=== PATIENT | female | born 1940 | race Caucasian/White ===

== ENCOUNTER → 2016-03-23 | Outpatient (CLI) | payer MEDICARE, BC ==
[~2016-03-23] MED LIST: ALPR1TAB3 PO; BUPR1TAB29 PO; CELE1CAP11 PO; CELE200 PO; CHOL1CAP14 PO; COMPTAB PO; DIGO0.25 PO; ESTE500T PO; FURO1TAB93 PO; FURO40TA PO; HYDR-3133 PO; HYDR-3533 PO; LEVO100T5 PO; LEVO100T60 PO; MACR100C2 PO; MULTTAB67 PO; PRIM50TA5 PO; PROP20TA3 PO; SPIR25 PO; SPIR25TA PO; VITA200017 PO; WARF-18 PO; WARF2.5T40 PO; XANA1TAB6 PO
[2016-03-23 13:48] LABS: INTERNATIONAL NORMALIZED RATIO 1.6 RATIO; PROTHROMBIN TIME - PATIENT 18.1 SEC (9.8-11.6)
== END ==
LOC: CLAB 12:55
DX: I48.91 Unspecified atrial fibrillation (principal)
CPT/HCPCS: 36415; 85610

== ENCOUNTER → 2016-03-30 | Outpatient (CLI) | payer MEDICARE, BC ==
[2016-03-30 11:52] LABS: INTERNATIONAL NORMALIZED RATIO 4.7 RATIO; PROTHROMBIN TIME - PATIENT 55.5 SEC (9.8-11.6)
== END ==
LOC: CLAB 11:18
DX: I48.91 Unspecified atrial fibrillation (principal)
CPT/HCPCS: 36415; 85610

== ENCOUNTER 2016-04-05 19:44 | Emergency (ER) | payer MEDICARE, BC ==
[~2016-04-05] VITALS: Ht 167.6 cm; Wt 70.0 kg
[~2016-04-05 19:44] MED LIST changes: -ALPR1TAB3 PO; -BUPR1TAB29 PO; -CELE1CAP11 PO; -CHOL1CAP14 PO; -FURO40TA PO; -HYDR-3133 PO; -HYDR-3533 PO; -LEVO100T5 PO; -MACR100C2 PO; -MULTTAB67 PO; -PROP20TA3 PO; -SPIR25TA PO; -WARF-18 PO
[2016-04-05 19:47] VITALS: BP 181/72; PULSE 83; RESP 16; TEMP 97.2; O2SAT 95
[2016-04-05 20:53] VITALS: BP 191/74; PULSE 77; RESP 20; TEMP 97.3; O2SAT 98
[2016-04-05] MEDS ORDERED: ONDANSETRON HCL 4 MG/2 ML VIAL IV ONE (21:00)
[2016-04-05] MEDS ORDERED: MORPHINE SULFATE 4 MG/ML INJ IV PUSH ONE (21:00)
[2016-04-05] MEDS ORDERED: SODIUM CHLOR 0.9% 1000 ML INJ 1,000 ML IV SCH (21:00)
[2016-04-05] MEDS ORDERED: LEVO100T5 PO (21:20)
[2016-04-05] MEDS ORDERED: HYDR-3133 PO (21:20)
[2016-04-05] MEDS ORDERED: ALPR1TAB3 PO (21:20)
[2016-04-05] MEDS ORDERED: WARF-18 PO (21:20)
[2016-04-05] MEDS ORDERED: FURO40TA PO (21:20)
[2016-04-05] MEDS ORDERED: MULTTAB67 PO (21:20)
[2016-04-05] MEDS ORDERED: CHOL1CAP14 PO (21:20)
[2016-04-05] MEDS ORDERED: PROP20TA3 PO (21:20)
[2016-04-05] MEDS ORDERED: BUPR1TAB29 PO (21:20)
[2016-04-05] MEDS ORDERED: CELE1CAP11 PO (21:20)
[2016-04-05] MEDS ORDERED: SPIR25TA PO (21:20)
[2016-04-05] MEDS ORDERED: DIGO0.25 PO (21:20)
[2016-04-05 21:39] LABS: BACTERIA, URINE RARE /hpf; BLOOD, URINE NEG (NEG); COMMENT (UR) CULTURE INDICATED; CULTURE IF INDICATED CULTURE INDICATED; GLUCOSE,URINE NEG (NEG); HYALINE CAST, URINE 15 /lpf (RARE); KETONE, URINE NEG (NEG); MUCUS URINE FEW /lpf (OCC); NITRITE,URINE NEG (NEG); PH, URINE 5.5 (5.0-8.5); SQUAMOUS EPITHELIAL CELL URINE 1 /hpf (0-5); URINE COLOR YELLOW (YELLW/STRAW)
[2016-04-05 21:45] LABS: APTT (PATIENT) 50.2 SEC (24.3-30.1); AUTOMATED NEUTROPHIL # 4.9 TH/MM3 (1.8-7.7); BASOPHIL % 0.5 % (0.0-2.0); EOSINOPHIL # 0.1 TH/MM3 (0-0.4); EOSINOPHIL % 1.4 % (0.0-4.0); HEMATOCRIT 38.8 % (35.0-46.0); HEMO FLAGS DIFF FINAL; INTERNATIONAL NORMALIZED RATIO 3.3 RATIO; LYMPH % 16.8 % (9.0-44.0); LYMPHOCYTE # 1.2 TH/MM3 (1.0-4.8); MEAN CELL VOLUME 92.4 FL (80.0-100.0); MEAN CORPUSCULAR HEMOGLOBIN 30.9 PG (27.0-34.0); MEAN CORPUSCULAR HGB CONC 33.4 % (32.0-36.0); MONO % 10.4 % (0.0-8.0); NEUT % 70.9 % (16.0-70.0); PLATELET COUNT 225 TH/MM3 (150-450); PROTHROMBIN TIME - PATIENT 38.6 SEC (9.8-11.6); RED CELL DISTRIBUTION WIDTH 12.8 % (11.6-17.2); WHITE BLOOD COUNT 6.9 TH/MM3 (4.0-11.0)
--- NOTE | 2016-04-05 21:55 | PD ---
HPI Chief Complaint: Back/ Neck Pain or Injury Time Seen by Provider: 20:31 Travel History International Travel<30 days: No Contact w/Intl Traveler<30days: No Traveled to known affect area: No History of Present Illness HPI The patient is a 75 year old female who presents to the [facility] emergency department with a history of back pain on the right side that radiates around to the right upper quadrant of the abdomen that first began in December 2015. She reports that it had been coming and going. She reports that the pain has become more severe and more persistent recently. She reports that she saw her primary care physician, Dr. Reyes regarding this on 2 occasions. The first time at chest x-ray was done which was unremarkable. The second time a CT scan of the chest was done which was reportedly unremarkable. She does report having a chronic cough related to postnasal drip that is been no worse than usual and no more productive. The patient reports that the pain is sharp in character. She reports that it is worse when she takes a deep breath or moves. She reports that it is also worse with coughing. She reports that she recently did have a diminished appetite and some nausea with eating, however this was attributed to a change in medication. She reports that this has improved recently again.. The patient denies having any recent fevers, cough, neck pain, chest pain, shortness of breath, abdominal pain, diarrhea, urinary symptoms, or neurologic symptoms. PFSH Past Medical History Narrative Medical The patient's past medical history is significant for chronic atrial fibrillation, history of mitral valve replacement with an artificial valve in 1995, hypertension, essential tremor, vertigo, anxiety disorder, depression, hypothyroid disorder. Hx Anticoagulant Therapy: Yes Arthritis: Yes Asthma: No Autoimmune Disease: No Blood Disorders: No Anxiety: Yes Depression: Yes Heart Rhythm Problems: Yes (AFIB) Cancer: No Cardiac Catheterization: Yes (MECHANICAL HEART VALVE IN 1995) Cardiovascular Problems: Yes High Cholesterol: No Chest Pain: No Congestive Heart Failure: No COPD: No Cerebrovascular Accident: No Diabetes: No Diminished Hearing: No Gastrointestinal Disorders: No GERD: No Genitourinary: No Hiatal Hernia: No Hypertension: Yes Immune Disorder: No Implanted Vascular Access Dvce: Yes Kidney Stones: No Musculoskeletal: Yes Neurologic: No Psychiatric: Yes Reproductive: No Respiratory: No Immunizations Current: Yes Renal Failure: No Sickle Cell Disease: No Sleep Apnea: No Thyroid Disease: Yes (HYPOTHYROID) Ulcer: No Tetanus Vaccination: > 5 Years Influenza Vaccination: Yes (2016) Menopausal: Yes Past Surgical History Narrative Surgical The patient's past surgical history is significant for mitral valve replacement , left knee surgery to remove some cartilage. Abdominal Surgery: No AICD: No Arteriovenous Shunt: No Body Medical Devices: AORTIC VALVE REPLACEMENT Cardiac Surgery: Yes (AORTIC VALVE REPLACEMENT 1995) Ear Surgery: No Endocrine Surgery: No Eye Surgery: No Genitourinary Surgery: No Gynecologic Surgery: No Insulin Pump: No Joint Replacement: No Neurologic Surgery: No Oral Surgery: No Pacemaker: No Thoracic Surgery: No Other Surgery: Yes Social History Alcohol Use: Yes (3 times a year) Tobacco Use: No Substance Use: No Allergies-Medications (Allergen,Severity, Reaction): Coded Allergies: Adhesives (Unverified Allergy, Severe, 04/05/16) SKIN IRRITATION Latex (Unverified Allergy, Severe, 04/05/16) SKIN IRRITATION Reported Meds & Prescriptions Reported Meds & Active Scripts Active Macrobid (Nitrofurantoin Monoh/Nitrofur Macro) 100 Mg Cap 100 Mg PO BID 10 Days Lortab (Hydrocodone-Acetaminophen) 5-325 Mg Tab 1 Tab PO Q6H PRN Reported Propranolol (Propranolol HCl) 20 Mg Tab 20 Mg PO Q12HR Hydroxyzine HCl 25 Mg Tab 25 Mg PO TID PRN Levothyroxine (Levothyroxine Sodium) 100 Mcg Tab 100 Mcg PO DAILY D3 Maximum Strength (Cholecalciferol) 5,000 Unit Cap 2,000 Units PO DAILY Multiple Vitamin 1 Tab 1 Tab PO DAILY Furosemide 40 Mg Tab 40 Mg PO DAILY Digoxin 0.25 Mg Tab 0.25 Mg PO DAILY Spironolactone 25 Mg Tab 25 Mg PO DAILY Warfarin 2.5 Mg Tab 2.5 Mg PO DIRECTED Alprazolam 1 Mg Tab 1 Mg PO DIRECTED PRN Celecoxib 50 Mg Cap 50 Mg PO DAILY Bupropion HCl ER 12 HR (Bupropion HCl) 150 Mg Tab 150 Mg PO DAILY Review of Systems Except as stated in HPI: all other systems reviewed are Neg General / Constitutional: No: Fever Eyes: No: Visual changes HENT: No: Headaches Cardiovascular: No: Chest Pain or Discomfort Respiratory: Positive: Cough (chronic in nature), No: Shortness of Breath Gastrointestinal: No: Abdominal Pain Genitourinary: No: Dysuria Musculoskeletal: Positive: Myalgias, Arthralgias, Pain Skin: No Rash Neurologic: No: Weakness, Focal Abnormalities, Change in Mentation, Sensory Disturbance Psychiatric: No: Depression Endocrine: No: Polydipsia Hematologic/Lymphatic: No: Easy Bruising Physical Exam Narrative General: The patient is a well-developed well-nourished female in no acute distress. Head and Neck exam: Head is normocephalic atraumatic. Eyes: Pupils are equal round and reactive to light. Nose: Midline septum with pink mucous membranes Mouth: Dentition unremarkable. Moist mucus membranes. Posterior oropharynx is not erythematous. No tonsillar hypertrophy. Uvula midline. Airway patent. Neck: No palpable lymphadenopathy. No nuchal rigidity. No thyromegaly. Cardiovascular: Regular rate and rhythm without murmurs, gallops, or rubs. Lungs: Clear to auscultation bilaterally. No wheezes, rhonchi, or rales. Abdomen: Soft, with reported tenderness on palpation in the midepigastric and right upper quadrant of the abdomen on deep palpation. No other tenderness in the other quadrants of the abdomen. No guarding, rebound, or rigidity. Negative Roark sign. Extremities: No clubbing, cyanosis, or edema. 2+ pulses in all 4 extremities. Back: No spinous process tenderness to palpation. The patient reports having discomfort on palpation of the right side of the thorax medial to her scapula all along her right side of her back. There is no crepitus or step-off. No rash. No erythema or ecchymosis. No flail segment. No costovertebral angle tenderness to palpation. Neurologic Exam: Cranial nerves 2-12 were intact on exam. Strength is 5/5 in all 4 extremities. No sensory deficits noted. Skin Exam: No rash noted. Intact skin that is warm and dry. Data Data Last Documented VS Vital Signs Date Time Temp Pulse Resp B/P Pulse Ox O2 Delivery O2 Flow Rate FiO2 04/05/16 20:53 97.3 77 20 191/74 98 Orders Complete Blood Count With Diff (04/05/16 20:49) Comprehensive Metabolic Panel (04/05/16 20:49) Prothrombin Time / Inr (Pt) (04/05/16 20:49) Act Partial Throm Time (Ptt) (04/05/16 20:49) Lipase (04/05/16 20:49) Urinalysis - C+S If Indicated (04/05/16 20:49) Us Abdomen Gallbladder (04/05/16 20:49) Iv Access Insert/Monitor (04/05/16 20:49) Ecg Monitoring (04/05/16 20:49) Oximetry (04/05/16 20:49) Ct Thor Spine W/O Contrast (04/05/16 20:49) Ondansetron Inj (Zofran Inj) (04/05/16 21:00) Morphine Inj (Morphine Inj) (04/05/16 21:00) Sodium Chlor 0.9% 1000 Ml Inj (Ns 1000 M (04/05/16 21:00) Urine Culture (04/05/16 21:10) Ceftriaxone Inj (Rocephin Inj) (04/05/16 22:00) Acetamin-Hydrocod 325-5 Mg ([place] 5-325 (04/05/16 23:30) Labs Laboratory Tests Test 04/05/16 21:10 White Blood Count 6.9 TH/MM3 Red Blood Count 4.20 MIL/MM3 Hemoglobin 13.0 GM/DL Hematocrit 38.8 % Mean Corpuscular Volume 92.4 FL Mean Corpuscular Hemoglobin 30.9 PG Mean Corpuscular Hemoglobin 33.4 % Concent Red Cell Distribution Width 12.8 % Platelet Count 225 TH/MM3 Mean Platelet Volume 8.8 FL Neutrophils (%) (Auto) 70.9 % Lymphocytes (%) (Auto) 16.8 % Monocytes (%) (Auto) 10.4 % Eosinophils (%) (Auto) 1.4 % Basophils (%) (Auto) 0.5 % Neutrophils # (Auto) 4.9 TH/MM3 Lymphocytes # (Auto) 1.2 TH/MM3 Monocytes # (Auto) 0.7 TH/MM3 Eosinophils # (Auto) 0.1 TH/MM3 Basophils # (Auto) 0.0 TH/MM3 CBC Comment DIFF FINAL Differential Comment Prothrombin Time 38.6 SEC Prothromb Time International 3.3 RATIO Ratio Activated Partial 50.2 SEC Thromboplast Time Urine Color YELLOW Urine Turbidity CLEAR Urine pH 5.5 Urine Specific [place] 1.031 Urine Protein TRACE mg/dL Urine Glucose (UA) NEG mg/dL Urine Ketones NEG mg/dL Urine Occult Blood NEG Urine Nitrite NEG Urine Bilirubin NEG Urine Urobilinogen LESS THAN 2.0 MG/DL Urine Leukocyte Esterase MOD Urine RBC 3 /hpf Urine WBC 29 /hpf Urine Squamous Epithelial 1 /hpf Cells Urine Bacteria RARE /hpf Urine Hyaline Casts 15 /lpf Urine Mucus FEW /lpf Microscopic Urinalysis Comment CULTURE INDICATED Sodium Level 139 MEQ/L Potassium Level 3.5 MEQ/L Chloride Level 97 MEQ/L Carbon Dioxide Level 34.7 MEQ/L Anion Gap 7 MEQ/L Blood Urea Nitrogen 20 MG/DL Creatinine 1.07 MG/DL Estimat Glomerular Filtration 50 ML/MIN Rate Random Glucose 86 MG/DL Calcium Level 9.4 MG/DL Total Bilirubin 0.3 MG/DL Aspartate Amino Transf 18 U/L (AST/SGOT) Alanine Aminotransferase 14 U/L (ALT/SGPT) Alkaline Phosphatase 96 U/L Total Protein 8.1 GM/DL Albumin 4.0 GM/DL Lipase 215 U/L [facility] Medical Decision Making Medical Screen Exam Complete: Yes Emergency Medical Condition: Yes Medical Record Reviewed: Yes Interpretation(s) Last Impressions Thoracic Spine CT 04/05/162048 Signed Impressions: Service Date/Time: Tuesday, April 05, 2016 21:36 - CONCLUSION: There are numerous thoracic spine compression fractures as above, none convincingly acute. No fracture-associated thoracic spine foraminal or spinal stenosis Tano Campbell MD Gall Bladder Ultrasound 04/05/162048 Signed Impressions: Service Date/Time: Tuesday, April 05, 2016 21:48 - CONCLUSION: 1. Mild enlargement and probably mild fatty infiltrated liver. 2. Ultrasound appearance of the gallbladder within normal limits. 3. Benign-appearing right renal cyst. Tano Campbell MD Differential Diagnosis Kidney stone, versus pyelonephritis, versus acute cholecystitis, versus compression fracture, versus biliary colic Narrative Course During the course of the patients emergency department visit, the patients history, examination, and differential diagnosis were reviewed with the patient. The patient had IV access obtained and blood work sent for analysis. The patient was provided the patient was given morphine for pain, Zofran for nausea. The patient after pyuria was noted and there was a suspicion of urinary tract infection the patient was given Rocephin 1 g IV. The patient was continued on maintenance IV fluids. The patients laboratory studies were reviewed and remarkable for a white count of 6.9, hemoglobin 13, platelets 225 with 70.9 neutrophils, monocytes 10.4, CMP was remarkable for a chloride of 97, CO2 34.7, BUN 20, creatinine 1.07, lipase 215, INR 3.3, urinalysis shows moderate leukocyte esterase 3 RBCs WBCs 29, rare bacteria, culture indicated. Radiology studies were reviewed and remarkable for mild enlargement probably mild fatty liver, ultrasound appearance of the gallbladder is within normal limits, benign-appearing right renal cyst. CT scan of the thoracic spine reveals numerous thoracic spine compression fractures, none convincingly acute. No fracture associated thoracic spine foraminal or spinal stenosis. The patient's results were discussed with the patient's primary care physician, Dr. Reyes. He felt that the patient could be managed as an outpatient. The patient reports that she has an appointment with an orthopedic physician as scheduled for . The patient was instructed regarding the importance of following up. The patient will be given a prescription for Macrobid, and Lortab. The patient is resting comfortably and feels better, is alert and in no distress. The patients results and examination findings were discussed with the patient. The repeat examination is unremarkable and benign. The history, exam, diagnostic testing, and current condition do not suggest any significant pathology to warrant further testing, continued ED treatment, admission, or surgical evaluation at this point. The vital signs have been stable. The patient does not have uncontrollable pain, intractable vomiting, or other significant symptoms. The patient's condition is stable and appropriate for discharge. The patient will pursue further outpatient evaluation with a primary care physician or other designated or consulting physician as indicated in the discharge instructions. The patient expressed understanding and was agreeable with this plan. Physician Communication Physician Communication I spoke to Dr. Reyes at approximately 10:45 PM regarding this patient's case. I discussed the patient's CT of the thoracic spine findings, laboratory results, urinalysis results and ultrasound of the gallbladder. He reports that she does have a history of compression fractures of her thoracic spine. He was agreeable with the plan for the patient to be discharged home and follow-up with orthopedic physician as previously scheduled for this . The patient will be discharged home with Macrobid and Lortab. Diagnosis Primary Impression: Back pain Qualified Code: M54.6 - Chronic right-sided thoracic back pain Additional Impressions: Compression fracture of body of thoracic vertebra Urinary tract infection Referrals: Marixa Reyes MD 2 days Orthopedist 2 days Patient Instructions: Back Pain (ED), General Instructions, Vertebral Compression Fracture (ED) Med/Other Pt SpecificInfo: Prescription(s) given Scripts Nitrofurantoin Monohydrate Macrocrystals (Macrobid)100 Mg [id number] Mg PO BID 10 Days Ref 0 Prov:Devika Arauz MD 04/05/16 Hydrocodone-Acetaminophen (Lortab)5-325 Mg Tab1 Tab PO Q6H PRN (PAIN) #12 TAB Ref 0 Prov:Devika Arauz MD 04/05/16 Disposition: 01 DISCHARGE HOME Condition: Stable Devika Arauz MD Apr 05, 2016 21:55
[2016-04-05 22:00] LABS: ANION GAP 7 MEQ/L (5-15); AST (GOT) 18 U/L (15-37); BICARBONATE 34.7 MEQ/L (21.0-32.0); BLOOD UREA NITROGEN 20 MG/DL (7-18); CHLORIDE 97 MEQ/L (98-107); GLOMERULAR FILTRATION RATE 50 ML/MIN (>89); POTASSIUM 3.5 MEQ/L (3.5-5.1); SODIUM (NA) 139 MEQ/L (136-145)
[2016-04-05] MEDS ORDERED: cefTRIAXone INJ 1,000 MG in SODIUM CHLORIDE 0.9% INJ 100 ML IV ONE (22:00)
[2016-04-05 22:03] LABS: ALKALINE PHOSPHATASE 96 U/L (45-117); ALT (GPT) 14 U/L (10-53); TOTAL BILIRUBIN ADULT 0.3 MG/DL (0.2-1.0)
--- NOTE | 2016-04-05 22:05 | RADRPT ---
EXAM DATE/TIME: 04/05/2016 21:36 [facility] COMPARISON: No previous studies available for comparison. INDICATIONS : Right-sided back pain. No trauma. RADIATION DOSE: 35.86 CTDIvol (mGy) MEDICAL HISTORY : Cardiovascular disease. SURGICAL HISTORY : None. ENCOUNTER: Initial ACUITY: 1 day PAIN SCALE: 6/10 LOCATION: Right Paraspinal TECHNIQUE: Volumetric scanning of the thoracic spine was performed. Multiplanar reconstructions in the sagittal , coronal and oblique axial planes were performed. Using automated exposure control and adjustment o f the mA and/or kV according to patient size, radiation dose was kept as low as reasonably achievable to obtain optimal diagnostic quality images. FINDINGS: I don't have any pertinent priors. Multiple compression fractures are demonstrated, mild of T2 and T3 , moderate of T5, [id number] at T6, moderate of T9 and T10, mild of T11 and moderate to severe at L1. These all generally appear subacute or older in age. I don't see an acute cortical break or tr abecular disruption. Posterior elements are intact. Slight retropulsion seen of L1 but no retropulsio n seen of the thoracic vertebral bodies. There is no fracture-associated foraminal or spinal stenosis of the thoracic spine. No epidural hematoma. No perceptible paraspinous hematoma CONCLUSION: There are numerous thoracic spine compression fractures as above, none convincingly acute. No fractur e-associated thoracic spine foraminal or spinal stenosis Tano Campbell MD on April 05, 2016 at 21:58 Board Certified Radiologist. This report was verified electronically.
--- NOTE | 2016-04-05 22:21 | RADRPT ---
EXAM DATE/TIME: 04/05/2016 21:48 [facility] COMPARISON: No previous studies available for comparison. INDICATIONS : Right upper quadrant pain. MEDICAL HISTORY : Hypothyroidism. Hypertension. Arthritis. Afib. Anticoagulant therapy. Depression. Anxiety. SURGICAL HISTORY : Aortic valve replacement. Cardiac cath. Left knee cartilage repair. ENCOUNTER: Initial ACUITY: 1 day PAIN SCORE: 10/10 LOCATION: Right upper quadrant MEASUREMENTS: LIVER: 18.6 cm length COMMON DUCT: 2 mm RIGHT KIDNEY: 9.6 x 3.9 x 4.3 cm FINDINGS: LIVER: Normal echotexture without focal lesion or ductal dilatation. COMMON DUCT: No intraluminal mass or stone visualized. GALLBLADDER: Contains no stones, demonstrates no wall thickening or pericholecystic fluid. PANCREAS: The visualized portions are within normal limits. RIGHT KIDNEY: 4.6 cm cyst upper pole. CONCLUSION: 1. Mild enlargement and probably mild fatty infiltrated liver. 2. Ultrasound appearance of the gallbladder within normal limits. 3. Benign-appearing right renal cyst. Tano Campbell MD on April 05, 2016 at 22:18 Board Certified Radiologist. This report was verified electronically.
[2016-04-05] MEDS ORDERED: MACR100C2 PO (22:53)
[2016-04-05] MEDS ORDERED: HYDR-3533 PO (22:53)
[2016-04-05] MEDS ORDERED: ACETAMINOPHEN/HYDROcodone 325 MG/5 MG TAB PO ONE (23:30)
== END 2016-04-05 23:40 | disposition home or self-care (01) ==
LOC: NEPC 19:44
DX: M48.54XA Collapsed vertebra, not elsewhere classified, thoracic region, initial encounter for fracture (principal); N39.0 Urinary tract infection, site not specified; R10.11 Right upper quadrant pain; E03.9 Hypothyroidism, unspecified; I10 Essential (primary) hypertension; Z95.2 Presence of prosthetic heart valve; I48.91 Unspecified atrial fibrillation; Z79.01 Long term (current) use of anticoagulants
CPT/HCPCS: 72128; 76705; 80053; 81001; 83690; 85025; 85610; 85730; 87086; 96361; 96365; 96375; 99284; J0696; J2270; J2405; J7030

== ENCOUNTER → 2016-04-12 | Outpatient (CLI) | payer MEDICARE, BC ==
[~2016-04-12] MED LIST changes: +ALPR1TAB3 PO; +BUPR1TAB29 PO; +CELE1CAP11 PO; -CELE200 PO; +CHOL1CAP14 PO; -COMPTAB PO; -ESTE500T PO; -FURO1TAB93 PO; +FURO40TA PO; +HYDR-3133 PO; +HYDR-3533 PO; +LEVO100T5 PO; -LEVO100T60 PO; +MACR100C2 PO; +MULTTAB67 PO; -PRIM50TA5 PO; +PROP20TA3 PO; -SPIR25 PO; +SPIR25TA PO; -VITA200017 PO; +WARF-18 PO; -WARF2.5T40 PO; -XANA1TAB6 PO
[2016-04-12 15:21] LABS: INTERNATIONAL NORMALIZED RATIO 4.3 RATIO; PROTHROMBIN TIME - PATIENT 51.2 SEC (9.8-11.6)
== END ==
LOC: CLAB 14:45
DX: I48.91 Unspecified atrial fibrillation (principal)
CPT/HCPCS: 36415; 85610

== ENCOUNTER → 2016-04-22 | Outpatient (CLI) | payer MEDICARE, BC ==
[2016-04-22 11:46] LABS: INTERNATIONAL NORMALIZED RATIO 1.9 RATIO; PROTHROMBIN TIME - PATIENT 22.1 SEC (9.8-11.6)
== END ==
LOC: CLAB 11:16
DX: I48.91 Unspecified atrial fibrillation (principal)
CPT/HCPCS: 36415; 85610

== ENCOUNTER → 2016-05-05 | Outpatient (CLI) | payer MEDICARE, BC ==
[2016-05-05 14:57] LABS: INTERNATIONAL NORMALIZED RATIO 2.2 RATIO; PROTHROMBIN TIME - PATIENT 25.2 SEC (9.8-11.6)
== END ==
LOC: CLAB 14:27
DX: I48.91 Unspecified atrial fibrillation (principal)
CPT/HCPCS: 36415; 85610

== ENCOUNTER → 2016-05-13 | Outpatient (CLI) | payer MEDICARE, BC ==
[2016-05-13 14:31] LABS: INTERNATIONAL NORMALIZED RATIO 3.2 RATIO; PROTHROMBIN TIME - PATIENT 36.8 SEC (9.8-11.6)
== END ==
LOC: CLAB 14:03
DX: I48.91 Unspecified atrial fibrillation (principal)
CPT/HCPCS: 36415; 85610

== ENCOUNTER → 2016-05-28 | Outpatient (CLI) | payer MEDICARE, BC ==
[2016-05-28 15:16] LABS: INTERNATIONAL NORMALIZED RATIO 2.5 RATIO
== END ==
LOC: CLAB 14:43
DX: I48.91 Unspecified atrial fibrillation (principal)
CPT/HCPCS: 36415; 85610

== ENCOUNTER → 2016-06-17 | Outpatient (CLI) | payer MEDICARE, BC ==
[2016-06-17 15:11] LABS: INTERNATIONAL NORMALIZED RATIO 1.6 RATIO; PROTHROMBIN TIME - PATIENT 18.1 SEC (9.8-11.6)
== END ==
LOC: CLAB 14:29
DX: I48.91 Unspecified atrial fibrillation (principal)
CPT/HCPCS: 36415; 85610

== ENCOUNTER → 2016-06-24 | Outpatient (CLI) | payer MEDICARE, BC ==
[2016-06-24 15:58] LABS: INTERNATIONAL NORMALIZED RATIO 2.2 RATIO; PROTHROMBIN TIME - PATIENT 25.4 SEC (9.8-11.6)
== END ==
LOC: CLAB 15:19
DX: I48.91 Unspecified atrial fibrillation (principal)
CPT/HCPCS: 36415; 85610

== ENCOUNTER → 2016-07-09 | Outpatient (CLI) | payer MEDICARE, BC ==
[2016-07-09 14:49] LABS: INTERNATIONAL NORMALIZED RATIO 2.6 RATIO; PROTHROMBIN TIME - PATIENT 29.5 SEC (9.8-11.6)
== END ==
LOC: CLAB 14:16
DX: I48.91 Unspecified atrial fibrillation (principal)
CPT/HCPCS: 36415; 85610

== ENCOUNTER → 2016-08-05 | Outpatient (CLI) | payer MEDICARE, BC ==
[2016-08-05 12:05] LABS: INTERNATIONAL NORMALIZED RATIO 2.1 RATIO; PROTHROMBIN TIME - PATIENT 23.6 SEC (9.8-11.6)
== END ==
LOC: CLAB 11:19
DX: I48.91 Unspecified atrial fibrillation (principal)
CPT/HCPCS: 36415; 85610

== ENCOUNTER → 2016-09-01 | Outpatient (CLI) | payer MEDICARE, BC ==
[2016-09-01 14:45] LABS: INTERNATIONAL NORMALIZED RATIO 2.4 RATIO; PROTHROMBIN TIME - PATIENT 27.5 SEC (9.8-11.6)
== END ==
LOC: CLAB 13:49
DX: I48.91 Unspecified atrial fibrillation (principal)
CPT/HCPCS: 36415; 85610

== ENCOUNTER → 2016-09-29 | Outpatient (CLI) | payer MEDICARE, BC ==
[2016-09-29 12:38] LABS: INTERNATIONAL NORMALIZED RATIO 1.3 RATIO; PROTHROMBIN TIME - PATIENT 14.8 SEC (9.8-11.6)
== END ==
LOC: CLAB 11:38
DX: I48.91 Unspecified atrial fibrillation (principal)
CPT/HCPCS: 36415; 85610

== ENCOUNTER → 2016-10-06 | Outpatient (CLI) | payer MEDICARE, BC ==
[2016-10-06 12:17] LABS: INTERNATIONAL NORMALIZED RATIO 2.3 RATIO; PROTHROMBIN TIME - PATIENT 26.7 SEC (9.8-11.6)
== END ==
LOC: CLAB 11:32
DX: I48.91 Unspecified atrial fibrillation (principal)
CPT/HCPCS: 36415; 85610

== ENCOUNTER → 2016-12-02 | Outpatient (CLI) | payer MEDICARE, BC ==
[2016-12-02 13:26] LABS: PROTHROMBIN TIME - PATIENT 35.4 SEC (9.8-11.6)
== END ==
LOC: CLAB 12:56
DX: I48.91 Unspecified atrial fibrillation (principal)
CPT/HCPCS: 36415; 85610

== ENCOUNTER → 2017-01-03 | Outpatient (CLI) | payer MEDICARE, BC ==
[2017-01-03 14:59] LABS: INTERNATIONAL NORMALIZED RATIO 3.3 RATIO; PROTHROMBIN TIME - PATIENT 38.3 SEC (9.8-11.6)
== END ==
LOC: CLAB 14:10
DX: I48.91 Unspecified atrial fibrillation (principal)
CPT/HCPCS: 36415; 85610

== ENCOUNTER → 2017-02-03 | Outpatient (CLI) | payer MEDICARE, BC ==
[~2017-02-03] MED LIST changes: -CHOL1CAP14 PO; +D 50CAP2 PO
[2017-02-03 13:29] LABS: INTERNATIONAL NORMALIZED RATIO 1.8 RATIO; PROTHROMBIN TIME - PATIENT 20.9 SEC (9.8-11.6)
[2017-02-03 13:36] LABS: BICARBONATE 36.8 MEQ/L (21.0-32.0); POTASSIUM 4.3 MEQ/L (3.5-5.1)
== END ==
LOC: CLAB 12:38
PROVIDERS: ATTEND Internal Medicine Interventional Cardiology
DX: I27.0 Primary pulmonary hypertension (principal); I48.91 Unspecified atrial fibrillation; Z79.899 Other long term (current) drug therapy
CPT/HCPCS: 36415; 80048; 85610

== ENCOUNTER → 2017-02-09 | Outpatient (CLI) | payer MEDICARE, BC ==
[2017-02-09 13:03] LABS: INTERNATIONAL NORMALIZED RATIO 1.2 RATIO; PROTHROMBIN TIME - PATIENT 13.3 SEC (9.8-11.6)
== END ==
LOC: CLAB 12:25
DX: I48.91 Unspecified atrial fibrillation (principal)
CPT/HCPCS: 36415; 85610

== ENCOUNTER → 2017-02-16 | Outpatient (CLI) | payer MEDICARE, BC ==
[2017-02-16 12:50] LABS: INTERNATIONAL NORMALIZED RATIO 1.6 RATIO; PROTHROMBIN TIME - PATIENT 17.6 SEC (9.8-11.6)
== END ==
LOC: CLAB 12:23
DX: I48.91 Unspecified atrial fibrillation (principal)
CPT/HCPCS: 36415; 85610

== ENCOUNTER → 2017-02-23 | Outpatient (CLI) | payer MEDICARE, BC ==
[2017-02-23 13:07] LABS: INTERNATIONAL NORMALIZED RATIO 2.4 RATIO
== END ==
LOC: CLAB 12:19
DX: I48.91 Unspecified atrial fibrillation (principal)
CPT/HCPCS: 36415; 85610

== ENCOUNTER → 2017-03-10 | Outpatient (CLI) | payer MEDICARE, BC ==
[2017-03-10 13:06] LABS: INTERNATIONAL NORMALIZED RATIO 3.1 RATIO; PROTHROMBIN TIME - PATIENT 31.2 SEC (9.8-11.6)
== END ==
LOC: CLAB 12:27
DX: I48.91 Unspecified atrial fibrillation (principal)
CPT/HCPCS: 36415; 85610

== ENCOUNTER → 2017-04-06 | Outpatient (CLI) | payer MEDICARE, BC ==
[2017-04-06 14:39] LABS: INTERNATIONAL NORMALIZED RATIO 3.1 RATIO; PROTHROMBIN TIME - PATIENT 30.9 SEC (9.8-11.6)
== END ==
LOC: CLAB 13:59
DX: I48.91 Unspecified atrial fibrillation (principal)
CPT/HCPCS: 36415; 85610

== ENCOUNTER → 2017-04-13 | Outpatient (CLI) | payer MEDICARE, BC ==
[2017-04-13 11:55] LABS: INTERNATIONAL NORMALIZED RATIO 3.8 RATIO; PROTHROMBIN TIME - PATIENT 37.8 SEC (9.8-11.6)
== END ==
LOC: CLAB 11:13
DX: I48.91 Unspecified atrial fibrillation (principal)
CPT/HCPCS: 36415; 85610

== ENCOUNTER → 2017-05-04 | Outpatient (CLI) | payer MEDICARE, BC ==
[2017-05-04 14:01] LABS: INTERNATIONAL NORMALIZED RATIO 3.3 RATIO; PROTHROMBIN TIME - PATIENT 33.5 SEC (9.8-11.6)
== END ==
LOC: CLAB 13:01
DX: I48.91 Unspecified atrial fibrillation (principal)
CPT/HCPCS: 36415; 85610

== ENCOUNTER → 2017-05-26 | Outpatient (CLI) | payer MEDICARE, BC ==
[2017-05-26 12:47] LABS: PROTHROMBIN TIME - PATIENT 20.7 SEC (9.8-11.6)
== END ==
LOC: CLAB 12:17
DX: I48.91 Unspecified atrial fibrillation (principal)
CPT/HCPCS: 36415; 85610

== ENCOUNTER → 2017-06-09 | Outpatient (CLI) | payer MEDICARE, BC ==
[2017-06-09 11:56] LABS: INTERNATIONAL NORMALIZED RATIO 1.7 RATIO; PROTHROMBIN TIME - PATIENT 16.9 SEC (9.8-11.6)
== END ==
LOC: CLAB 11:11
DX: I48.91 Unspecified atrial fibrillation (principal)
CPT/HCPCS: 36415; 85610

== ENCOUNTER → 2017-06-20 | Outpatient (CLI) | payer MEDICARE, BC ==
[2017-06-20 10:26] LABS: INTERNATIONAL NORMALIZED RATIO 1.1 RATIO
[2017-06-20 10:29] LABS: AUTOMATED NEUTROPHIL # 2.8 TH/MM3 (1.8-7.7); BASOPHIL # 0.1 TH/MM3 (0-0.2); BASOPHIL % 1.2 % (0.0-2.0); EOSINOPHIL # 0.1 TH/MM3 (0-0.4); EOSINOPHIL % 2.8 % (0.0-4.0); HEMATOCRIT 38.9 % (35.0-46.0); LYMPH % 26.9 % (9.0-44.0); LYMPHOCYTE # 1.2 TH/MM3 (1.0-4.8); MEAN CELL VOLUME 96.5 FL (80.0-100.0); MEAN CORPUSCULAR HEMOGLOBIN 32.4 PG (27.0-34.0); MEAN CORPUSCULAR HGB CONC 33.5 % (32.0-36.0); MEAN PLATELET VOLUME 9.2 FL (7.0-11.0); MONO % 8.2 % (0.0-8.0); MONOCYTE # 0.4 TH/MM3 (0-0.9); NEUT % 60.9 % (16.0-70.0); PLATELET COUNT 162 TH/MM3 (150-450); RED BLOOD COUNT 4.03 MIL/MM3 (4.00-5.30); RED CELL DISTRIBUTION WIDTH 12.2 % (11.6-17.2); WHITE BLOOD COUNT 4.5 TH/MM3 (4.0-11.0)
[2017-06-20 10:43] LABS: BICARBONATE 34.4 MEQ/L (21.0-32.0); CALCIUM 9.1 MG/DL (8.5-10.1); CREATININE 1.01 MG/DL (0.50-1.00)
== END ==
LOC: CLAB 09:59
PROVIDERS: ATTEND Orthopaedic Surgery Orthopaedic Surgery of the Spine
DX: M48.54XS Collapsed vertebra, not elsewhere classified, thoracic region, sequela of fracture (principal); Z79.01 Long term (current) use of anticoagulants
CPT/HCPCS: 36415; 80048; 85025; 85610; 85730

== ENCOUNTER → 2017-07-11 | Outpatient (CLI) | payer MEDICARE, BC ==
[2017-07-11 14:23] LABS: INTERNATIONAL NORMALIZED RATIO 3.2 RATIO; PROTHROMBIN TIME - PATIENT 32.5 SEC (9.8-11.6)
== END ==
LOC: CLAB 13:53
DX: I48.91 Unspecified atrial fibrillation (principal)
CPT/HCPCS: 36415; 85610

== ENCOUNTER → 2017-07-25 | Outpatient (CLI) | payer MEDICARE, BC ==
[2017-07-25 13:20] LABS: INTERNATIONAL NORMALIZED RATIO 3.2 RATIO; PROTHROMBIN TIME - PATIENT 32.5 SEC (9.8-11.6)
== END ==
LOC: CLAB 12:48
DX: I48.91 Unspecified atrial fibrillation (principal)
CPT/HCPCS: 36415; 85610

== ENCOUNTER → 2017-08-16 | Outpatient (CLI) | payer MEDICARE, BC ==
[2017-08-16 13:03] LABS: HEMATOCRIT 40.7 % (35.0-46.0); HEMOGLOBIN 13.6 GM/DL (11.6-15.3); MEAN CORPUSCULAR HEMOGLOBIN 31.8 PG (27.0-34.0); MEAN CORPUSCULAR HGB CONC 33.5 % (32.0-36.0); MEAN PLATELET VOLUME 9.1 FL (7.0-11.0); PLATELET COUNT 198 TH/MM3 (150-450); RED BLOOD COUNT 4.28 MIL/MM3 (4.00-5.30); RED CELL DISTRIBUTION WIDTH 13.5 % (11.6-17.2)
[2017-08-16 13:21] LABS: WESTERGREN SEDIMENTATION RATE 38 mm/hr (0-30)
[2017-08-16 13:34] LABS: ALBUMIN 4.3 GM/DL (3.4-5.0); AST (GOT) 30 U/L (15-37); BICARBONATE 36.9 MEQ/L (21.0-32.0); BLOOD UREA NITROGEN 18 MG/DL (7-18); CALCIUM 9.7 MG/DL (8.5-10.1); CHLORIDE 94 MEQ/L (98-107); CREATININE 1.13 MG/DL (0.50-1.00); GLOMERULAR FILTRATION RATE 47 ML/MIN (>89); GLUCOSE,FASTING 96 MG/DL (74-99); SODIUM (NA) 137 MEQ/L (136-145)
[2017-08-16 13:37] LABS: FREE T4 1.41 NG/DL (0.76-1.46)
[2017-08-16 13:40] LABS: ALKALINE PHOSPHATASE 74 U/L (45-117); ALT (GPT) 21 U/L (10-53); TOTAL BILIRUBIN ADULT 0.6 MG/DL (0.2-1.0); TOTAL PROTEIN 8.5 GM/DL (6.4-8.2)
[2017-08-18 22:21] LABS: ALB/GLOB RATIO (SPE) 1.58 (1.39-2.23)
== END ==
LOC: CLAB 12:07
PROVIDERS: ATTEND Orthopaedic Surgery Orthopaedic Surgery of the Spine
DX: M81.8 Other osteoporosis without current pathological fracture (principal); E21.4 Other specified disorders of parathyroid gland; E83.30 Disorder of phosphorus metabolism, unspecified; E83.50 Unspecified disorder of calcium metabolism; M25.50 Pain in unspecified joint; E55.9 Vitamin D deficiency, unspecified
CPT/HCPCS: 36415; 80053; 82306; 83970; 84075; 84165; 84439; 85027; 85652

== ENCOUNTER → 2017-09-14 | Outpatient (CLI) | payer MEDICARE, BC ==
[2017-09-14 14:27] LABS: INTERNATIONAL NORMALIZED RATIO 4.4 RATIO; PROTHROMBIN TIME - PATIENT 44.5 SEC (9.8-11.6)
== END ==
LOC: CLAB 13:54
DX: I48.91 Unspecified atrial fibrillation (principal)
CPT/HCPCS: 36415; 85610